=== PATIENT | male | born 1940 | race Caucasian/White ===

== ENCOUNTER → 2018-02-04 | Outpatient (CLI) | payer OTHER ==
[~2018-02-04] VITALS: Ht 165.1 cm; Wt 91.6 kg
[2018-02-04] VITALS (10 sets, daily range): BP systolic 102–123; BP diastolic 53–63
[~2018-02-04] MED LIST: ASPIR 8181 MG PO; ASPIRIN325; ASPIRIN325 PO; CIPROFLOXACIN500 M1 PO; COZAAR 25 MG TA25 MG PO; D3; EFFIENT10 MG PO; FLAGYL500 MG PO; IMDUR 30 MG TAB30 M1 PO; LEVAQUIN 750 M750 MG PO; METFORMIN HCL500 MG; METFORMIN HCL500 MG PO; NITROGLYCERIN0.4 MG SUBLING; NORCO 5-325 TA1 EACH PO; OMEPRAZOLE20 M2 PO; PLAVIX 75 MG TA75 M1 PO; SIMVASTATIN20 MG PO; ZOCOR20 MG PO; ZOFRAN ODT4 MG PO
[2018-02-04 09:09] LABS: HEMATOCRIT 42.9 % (42.0-52.0); HEMOGLOBIN 14.3 gm/dL (14.0-18.0); MCH 29.6 pg (26.0-34.0); MCHC 33.4 g/dL (28.0-37.0); MCV 88.5 fL (80.0-100.0); MPV 9.7 fl. (7.2-11.1); RBC 4.84 mil/uL (4.50-6.00); RDW-CV 14.3 % (10.5-14.5); WBC 7.5 thou/uL (4.0-11.0)
[2018-02-04 09:20] LABS: ANION GAP 10 mmol/L (7-16); APTT 24.9 Seconds (25.0-31.3); BUN 16 mg/dL (7-18); CALCIUM 8.5 mg/dL (8.5-10.1); CHLORIDE 102 mmol/L (98-107); CO2 27 mmol/L (21-32); CREATININE 1.1 mg/dL (0.6-1.3); GLUCOSE 157 mg/dL (70-99); INR 1.1; POTASSIUM 3.7 mmol/L (3.5-5.1); PROTIME 10.7 Seconds (9.20-11.50); SODIUM 139 mmol/L (136-145)
[2018-02-04 09:24] LABS: ALBUMIN 3.8 g/dL (3.4-5.0); ALKALINE PHOSPHATASE 82 U/L (46-116); CHOLESTEROL 108 mg/dL (<200); HDL CHOLESTEROL 29 mg/dL (>40); LDL CHOLESTEROL 59 mg/dL (<100); SERUM ASSESSMENT Clear; SGOT 19 U/L (15-37); SGPT 22 U/L (30-65); TC:HDL 3.7 Ratio (Not establshd); TOTAL BILIRUBIN 0.9 mg/dL (<0.1-1.0); TOTAL PROTEIN 7.8 g/dL (6.4-8.2); TRIGLYCERIDE 101 mg/dL (<150); VLDL 20 mg/dL (<40)
--- NOTE | 2018-02-04 11:52 | EKG ---
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28 : 1940 Requested By: Taj Darby Order Number: [id number] Reading MD: Taj Darby Measurements Intervals [place] Rate: 53 P: 53 AR: 136 QRS: 46 QRSD: 112 T: 16 QT: 432 QTc: 406 Interpretive Statements Sinus rhythm Borderline intraventricular conduction delay Abnormal R-wave progression, early transition Compared to ECG 11/14/2016 05:06:38 Sinus arrhythmia no longer present Ventricular premature complex(es) no longer present Myocardial infarct finding no longer present Electronically Signed On 02-04-2018 11:52:27 CDT by Taj Darby [email or web address] <ELECTRONICALLY SIGNED> By: Taj Darby MD, [facility] 02/04/18 1152 [id number] Taj Darby MD, [facility] /EPI
--- NOTE | 2018-02-05 10:41 | CARD ---
[address] [address] CARDIAC CATH REPORT Name: BECKY POP Room: [facility].#: [id number] Admission: 02/04/18 Attend Phys: Taj Darby MD Discharge: Date of : 42 Report #: [id number] THIS REPORT FOR: //name// APPROVED REPORT Study performed: 02/04/2018 11:39:45 Patient Details Patient Status: Out-Patient Room #: The patient is a 77 year-old male Event Personnel Taj Darby Event Staff, , Jacque Horne RN RN, Mecca Maravilla RTR Monitor, Nahum Willard (R) Scrub Procedures Performed Left Heart Cath w/LT VGram Procedure Narrative A Slender Glidesheath sheath was inserted into the Right Radial Artery. Coronary angiography was performed using coronary diagnostic catheters. The right coronary system was accessed and visualized with a Diagnostic [place] 4.0 6fr catheter. The left coronary system was accessed and visualized with a Diagnostic [place] 4.0 6fr catheter. The left ventricle was accessed and visualized with a Diagnostic PC: Pig 6fr catheter. Closure device was deployed with a Fr Vasc-Band Reg 24cm. The patient tolerated the procedure well and there were no complications associated with the procedure. Intraoperative Conscious Sedation Sedation start time: 11:58 Case end Time: 12:18 Fentanyl 25 mcg Versed 2 mg Fluoro Time: 5.7 minutes Dose: DAP 40387 cGycm2 968.38 mGy Contrast Type and Amount: Omnipaque 150 ml Diagnostic Cath Left Main normal LAD proximal normal, mid focal 30% sten., distal small normal Diagonal 1 ostial 30% Diagonal 2 normal, small Circumflex proximal mild 20%, large, distal [place] [address] CARDIAC CATH REPORT Name: POPBECKY CERON Room: [facility]#: [id number] Admission: 02/04/18 Attend Phys: Taj Darby MD Discharge: Date of : 42 Report #: [id number] disease 30-50% OM1 small normal OM2 stent no restenosis, just proximal to this is a smooth 40-50% stenosis, large vessel with terminal branches which are normal Right Coronary large dominant and normal R PDA normal RPLV mild 30% diffuse,small Left Ventriculography The left ventricle is normal in size with normal contractility. The left ventricular ejection fraction is estimated to be >55%. Left ventricular wall motion abnormalities are not present. There is no mitral insufficiency. Hemodynamics The aortic pressure is 98/52 mmHg with a mean of 71 mmHg. The left ventricular pressure is 108/4 mmHg with a mean of mmHg. The left ventricular end diastolic pressure is 7 mmHg. Conclusion 1. patent stent in circumflex OM, no in stent restenosis 2. mild to moderate disease elsewhere 3. normal lv function Recommendations Medical Therapy <ELECTRONICALLY SIGNED> By: Taj Darby MD, FACC 02/05/18 104 40 40Taj Darby MD, FACC /INF
--- NOTE | 2018-02-18 08:10 | H ---
[place] [address] HISTORY AND PHYSICAL Name: BECKY POP Room: [facility].#: [id number] Admission: 02/04/18 Attend Phys: Taj Darby MD Discharge: Date of : 42 Report #: [id number] THIS REPORT FOR: //name// CC: Wilfrid Darby DATE OF SERVICE: 02/04/2018 PRIMARY NUTRITIONAL SERVICES HOST: Dr. Taj Darby. PRIMARY CARE DOCTOR: Dr. Wilfrid Souza. CHIEF COMPLAINT: Chest pain. HISTORY OF PRESENT ILLNESS: The patient is a 77-year-old man with a history of prior coronary artery disease and prior acute SC in 1986 and PCI in 2015, had been having increasing chest discomfort, dyspnea and fatigue. He has been compliant with aspirin and Plavix. He was evaluated with a nuclear stress test, which demonstrated a defect in the inferior wall. He has no documented allergy to contrast dye. His symptoms have been relatively reproducible and constant over the last several weeks. PAST MEDICAL HISTORY: Acute SC 1986, PCI in 2015 with a 2.25 x 15 mm drug-eluting stent to the circumflex and had at the time only moderate disease in his LAD and RCA. He had a dobutamine stress echo which in October of last year was normal. His pharmacologic Lexiscan nuclear stress test demonstrated a fixed inferior defect with ejection fraction of greater than 70%. HOME MEDICATIONS: Aspirin, Plavix, losartan 25 mg daily, metformin 500 mg p.o. b.i.d., omeprazole and Zocor 20 mg daily. ALLERGIES: He has no known allergies to contrast dye. REVIEW OF SYSTEMS: GENITOURINARY: No dysuria or hematuria. NEUROLOGIC: Denies slurred speech, numbness or visual changes. THROAT: Denies any dysphagia. CARDIOVASCULAR: Positive chest pain, positive dyspnea with exertion, no orthopnea, no PND, no palpitations. VITAL SIGNS: Blood pressure 140/74, heart rate is 60, weight is [address] [place] [address] HISTORY AND PHYSICAL Name: DONNBECKY CERON Room: [facility]#: [id number] Admission: 02/04/18 Attend Phys: Taj Darby MD Discharge: Date of : 42 Report #: [id number] GENERAL: Pleasant, moderately obese, elderly male who is alert, oriented, no apparent distress. NECK: Supple. No jugular venous distention. CARDIOVASCULAR: Regular. I cannot hear a murmur. LUNGS: Clear to auscultation. ABDOMEN: Soft, nontender. EXTREMITIES: There is no peripheral edema. SKIN: Warm and dry. FAMILY HISTORY: Positive for heart disease. SOCIAL HISTORY: He is a remote smoker, quit after his SC in 1986. He does not drink. IMPRESSION AND PLAN: 1. Angina. He is on a fairly aggressive medical therapy and dual antiplatelet therapy, but had been having increasing chest discomfort and an inferior defect on stress testing, which is new. We discussed proceeding with diagnostic cardiac catheterization. Risks and benefits were described to the patient in lay terms. 2. Coronary artery disease. He has a history remote percutaneous coronary intervention to his circumflex coronary artery. 3. Hypertension. This is stable. 4. Hyperlipidemia. We will resurvey lipids at the time of his cardiac catheterization. <ELECTRONICALLY SIGNED> By: Wilfrid Chase MD, FACC 02/18/18 0810 [id number] [id number] Darby MD, FACC /nt
== END | disposition home or self-care (01) ==
LOC: M.CL 08:14
PROVIDERS: Internal Medicine Cardiovascular Disease
DX: I25.10 Atherosclerotic heart disease of native coronary artery without angina pectoris (principal); I25.2 Old myocardial infarction; E11.9 Type 2 diabetes mellitus without complications; K21.9 Gastro-esophageal reflux disease without esophagitis; Z98.890 Other specified postprocedural states; Z90.49 Acquired absence of other specified parts of digestive tract; Z79.01 Long term (current) use of anticoagulants; Z79.82 Long term (current) use of aspirin; Z79.899 Other long term (current) drug therapy

== ENCOUNTER 2019-09-16 15:24 | Observation (INO) | payer OTHER ==
[~2019-09-16] VITALS: Ht 167.6 cm; Wt 86.2 kg
[2019-09-16 15:28] VITALS: BP 104/49
[2019-09-16] MEDS ORDERED: FUROSEMIDE 20 M20 MG PO (15:42)
[2019-09-16] MEDS ORDERED: NEURONTIN100 MG PO (15:43)
[2019-09-16] MEDS ORDERED: KLOR-CON 10 ER10 MEQ PO (15:44)
[2019-09-16 16:08] LABS: HEMATOCRIT 35.1 % (42.0-52.0); HEMOGLOBIN 11.5 gm/dL (14.0-18.0); MCH 27.1 pg (26.0-34.0); MCHC 32.6 g/dL (28.0-37.0); MCV 83.1 fL (80.0-100.0); MPV 10.1 fl. (7.2-11.1); NUCLEATED RBCS 0 /100WBC; PLATELET COUNT* 162 thou/uL (150-400); RBC 4.23 mil/uL (4.50-6.00); RDW-CV 19.5 % (10.5-14.5); WBC 9.6 thou/uL (4.0-11.0)
[2019-09-16 16:12] LABS: CALCIUM 8.4 mg/dL (8.5-10.1); CREATININE 1.1 mg/dL (0.6-1.3); POTASSIUM 4.1 mmol/L (3.5-5.1)
[2019-09-16 16:14] LABS: INR 1.1; PROTIME 11.2 Seconds (9.20-11.50)
[2019-09-16 16:22] LABS: ALBUMIN 3.5 g/dL (3.4-5.0); TOTAL BILIRUBIN 0.7 mg/dL (<0.1-1.0); TOTAL PROTEIN 7.1 g/dL (6.4-8.2)
[2019-09-16 16:34] LABS: ABSOLUTE LYMPHOCYTES 2.4 thou/uL (0.8-5.3); ABSOLUTE MONOCYTES 1.7 thou/uL (0.0-1.2); ABSOLUTE NEUTROPHILS 5.5 thou/uL (1.6-8.1)
[2019-09-16 16:35] LABS: ANISOCYTOSIS 1+; PLATELET ESTIMATE ADEQUATE
--- NOTE | 2019-09-16 18:56 | NUR ---
REPORT GIVEN TO JOHAN MAYNARD WHO IS TO ASSUME PT CARE AT THIS TIME.
[2019-09-16 19:40] VITALS: BP 114/71
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
[2019-09-16 20:30] VITALS: BP 134/48
[2019-09-16] MEDS ORDERED: TRESIBA100 UNIT/1 SUBQ (21:08)
[2019-09-16] MEDS ORDERED: TRAJENTA PO (21:08)
[2019-09-17] VITALS: BP 113/46
[2019-09-17 04:00] VITALS: BP 108/50
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
--- NOTE | 2019-09-17 08:15 | NUR ---
ASSUMED CARE AFTER REPORT APPROX 0730. A&OX4, ABLE TO COMMUNICATE NEEDS TO STAFF. ASSESSMENT COMPLETE, VS OBTAINED, WNL. MONITORED SINUS RHYTHM. IN ROOM WITH . STATES UNDERSTANDING OF PLAN OF CARE. CALL LIGHT IN REACH. HOURLY ROUNDING FOR SAFETY/NEEDS.
[2019-09-17 08:25] VITALS: BP 110/46
[2019-09-17 11:00] VITALS: BP 104/53
--- NOTE | 2019-09-17 12:57 | EKG ---
[place] [address] ELECTROCARDIOGRAM REPORT Name: BECKY POP Room: [address] M.R.#: [id number] Admission: 09/16/19 Attend Phys: Candy Medina Discharge: Date of : 42 Report #: [id number] THIS REPORT FOR: //name// [facility] ED Test Date: 2019-09-16 Test Time: 15:30:01 Pat Name: BECKY POP Department: Room: 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 09/17/19 1257 29 Maria L Morris MD, FAC /EPI
[2019-09-17 14:11] VITALS: BP 104/53
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
== END 2019-09-17 14:34 | disposition home or self-care (01) ==
LOC: M.ERS 15:24 → M.TBA-ER 18:33 → M.2W 20:00
PROVIDERS: Personal Emergency Response Attendant; ADMIT Internal Medicine
DX: R07.89 Other chest pain (principal); I25.10 Atherosclerotic heart disease of native coronary artery without angina pectoris; E11.9 Type 2 diabetes mellitus without complications; V89.2XXD Person injured in unspecified motor-vehicle accident, traffic, subsequent encounter; Y92.89 Other specified places as the place of occurrence of the external cause; Y93.89 Activity, other specified; Y99.8 Other external cause status